=== PATIENT | female | born 1950 | race Hispanic/Latino ===

== ENCOUNTER 2020-09-07 20:53 | Emergency (ER) | payer OTHER ==
[2020-09-07 21:00] VITALS: BP 120/73
[2020-09-08 00:07] VITALS: BP 112/56
[2020-09-08] MEDS ORDERED: ASPIRIN 325MG TAB PO ONE (01:00)
[2020-09-08 01:11] LABS: BASOPHILS % (AUTO) 0.6 % (0.0-5.0); EOSINOPHILS % (AUTO) 2.7 % (0.0-8.0); LYMPHOCYTES % (AUTO) 34.4 % (21.0-51.0); MEAN CORPUSCULAR HEMOGLOBIN 31.3 pg (27.0-33.0); MEAN CORPUSCULAR HGB CONC 34.3 g/dL (32.0-36.0); MEAN CORPUSCULAR VOLUME 91.3 fL (79-99); MONOCYTES % (AUTO) 7.2 % (3.0-13.0); PLATELET COUNT (AUTO) 231 K/uL (130-400); RED BLOOD CELL COUNT(AUTO) 4.82 MIL/uL (4.00-5.50); RED CELL DISTRIBUTION WIDTH 12.3 % (11.0-15.5); WHITE BLOOD COUNT (AUTO) 8.6 K/uL (4.8-10.8)
[2020-09-08 01:36] LABS: B-TYPE NATRIURETIC PEPTIDE 23 pg/mL (0-100)
[2020-09-08 01:38] LABS: CREATININE 0.7 mg/dL (0.5-1.5); POTASSIUM 4.5 mmol/L (3.5-5.1)
[2020-09-08 01:42] LABS: ALBUMIN 3.9 g/dL (3.5-5.0); BILIRUBIN,TOTAL 0.3 mg/dL (0.2-1.0); TOTAL PROTEIN, SERUM 8.3 g/dL (6.0-8.3)
[2020-09-08 01:45] LABS: INR 0.97 (0.85-1.15); PROTHROMBIN TIME 10.6 SEC (9.6-11.6)
[2020-09-08 01:52] LABS: APPEARANCE,URINE Clear (CLEAR); BILIRUBIN,URINE Negative (NEGATIVE); COLOR,URINE Yellow (YELLOW); GLUCOSE, URINE (UA) >=1000 mg/dL (NEGATIVE); KETONES,URINE Trace mg/dL (NEGATIVE); LEUKOCYTE ESTERASE ,URINE Negative (NEGATIVE); NITRATE,URINE Negative (NEGATIVE); OCCULT BLOOD,URINE Negative (NEGATIVE); PH,URINE 7.5 (5.0-8.0); PROTEIN,URINE Negative (NEGATIVE)
[2020-09-08 02:06] LABS: BACTERIA,URINE Few /HPF (None Seen); RBC,URINE 0-1 /HPF (0-1); SQUAMOUS EPITHELIAL CELL,UR 0-2 /HPF (0-2); YEAST,URINE BUDDING Moderate /HPF (None Seen)
[2020-09-08 02:22] VITALS: BP 109/72
[2020-09-08] MEDS ORDERED: KETOROLAC 30MG VIAL (30MG/ML) IM ONE (04:00)
[2020-09-08] MEDS ORDERED: LIDOCAINE 5% TOPICAL PATCH TP ONE (04:00)
[2020-09-08] MEDS ORDERED: CYCLOBENZAPRINE HCL 10 MG TABLET PO ONE (04:00)
[2020-09-08] MEDS ORDERED: ORPH-43 PO (04:03)
[2020-09-08] MEDS ORDERED: LIDOP TP (04:03)
[2020-09-08] MEDS ORDERED: MELO7.5T12 PO (04:03)
[2020-09-08 05:15] VITALS: BP 106/66
== END 2020-09-08 05:22 | disposition home or self-care (01) ==
LOC: EDH 20:53
DX: R07.89 Other chest pain (principal); M62.830 Muscle spasm of back; M54.6 Pain in thoracic spine; M25.512 Pain in left shoulder; I10 Essential (primary) hypertension; E11.9 Type 2 diabetes mellitus without complications; E78.00 Pure hypercholesterolemia, unspecified; Z79.899 Other long term (current) drug therapy
CPT/HCPCS: 36415; 71045; 80053; 81001; 82550; 83880; 84484 ×2; 85025; 85610; 87088; 93005 ×2; 96372; 99285; J1885